=== PATIENT | male | born 1980 | race Two or more races ===

== ENCOUNTER 2022-02-28 23:08 | Emergency (ER) | payer OTHER ==
[~2022-02-28] VITALS: Ht 162.6 cm; Wt 68.0 kg
--- NOTE | 2022-02-28 23:15 | NUR ---
TO ER BED 11. [id number]. SEIZURE. WITNESSED BY FRIENDS. NO POSTICTAL STATE NOTED. PT IS ALERT AND ORIENTED. RR EVEN AND NON LABORED. SEIZURE PRECAUTIONS IN PLACE. CONNECTED TO MONITOR. VSS
--- NOTE | 2022-02-28 23:26 | NUR ---
BS 115; DR. BLOCK AWARE
--- NOTE | 2022-02-28 23:29 | NUR ---
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
[2022-02-28] MEDS ORDERED: IV NS 0.9% 1,000 ML BAG IV ONE (23:30)
--- NOTE | 2022-02-28 23:47 | NUR ---
PT TAKEN TO CT VIA REKHA
--- NOTE | 2022-02-28 23:49 | NUR ---
IV LINE ESTABLISHED, [id number]
[2022-02-28 23:57] LABS: BASOPHILS % (AUTO) 0.1 % (0.0-2.0); EOSINOPHILS % (AUTO) 0.3 % (0.0-6.0); HEMATOCRIT 48 % (39-51); HEMOGLOBIN 16.2 g/dL (13.5-17.5); LYMPHOCYTES # (AUTO) 1.1 K/uL (0.8-4.8); LYMPHOCYTES % (AUTO) 7.8 % (20.0-44.0); MEAN CORPUSCULAR HGB CONC 34 g/dl (31.0-36.0); MEAN CORPUSCULAR VOLUME 86 fL (80-96); MONOCYTES # (AUTO) 1.2 K/uL (0.1-1.30); MONOCYTES % (AUTO) 7.9 % (2.0-12.0); NEUTROPHILS # (AUTO) 12.3 K/uL (1.8-8.9); NEUTROPHILS % (AUTO) 83.9 % (43.0-81.0); PLATELET COUNT (AUTO) 323 K/uL (150-450); RED BLOOD CELL COUNT(AUTO) 5.63 MIL/uL (4.5-6.0); WHITE BLOOD COUNT (AUTO) 14.7 K/uL (4.3-11.0)
--- NOTE | 2022-02-28 23:57 | NUR ---
PT RETURNED TO ER BED [address]
[2022-03-01 00:06] LABS: CALCIUM, SERUM 8.9 mg/dL (8.5-10.1); CARBON DIOXIDE 32 mmol/L (21-32); CHLORIDE 98 mmol/L (98-107); GLUCOSE 101 mg/dL (74-106); POTASSIUM 3.6 mmol/L (3.5-5.1); SODIUM SERUM 134 mmol/L (136-145); UREA NITROGEN, BLOOD 11 mg/dL (7-18)
[2022-03-01 00:14] LABS: ALANINE AMINOTRANSFERASE 26 U/L (12-78); ALBUMIN 3.6 g/dL (3.4-5.0); ALCOHOL, BLOOD < 3 mg/dL (0-0); ALKALINE PHOSPHATASE 111 U/L (46-116); ASPARTATE AMINOTRANSFERASE 15 U/L (15-37); BILIRUBIN,DIRECT 0.1 mg/dL (0.0-0.2); BILIRUBIN,TOTAL 0.4 mg/dL (0.2-1.0); TOTAL PROTEIN, SERUM 8.6 g/dL (6.4-8.2)
--- NOTE | 2022-03-01 02:26 | NUR ---
FOLLOWED UP [facility] REGARDING CT RESULT, WILL CALL [facility] FOR FOLLOW UP
--- NOTE | 2022-03-01 03:08 | NUR ---
CALLED [facility] TO FOLLOW UP ON CT SCAN, APPROX TIME OF READING WILL BE 2 HOURS
--- NOTE | 2022-03-01 03:54 | NUR ---
IV removed. Catheter intact and site benign. Pressure and 4x4 applied to site. No bleeding noted.
--- NOTE | 2022-03-01 03:54 | NUR ---
Patient discharged to home in stable condition. Written and verbal after care instructions given. Patient verbalizes understanding of instruction.
[2022-03-01 03:57] VITALS: BP 126/71
== END 2022-03-01 03:58 | disposition home or self-care (01) ==
LOC: ER 23:12
DX: G40.909 Epilepsy, unspecified, not intractable, without status epilepticus (principal); F17.200 Nicotine dependence, unspecified, uncomplicated; Z60.2 Problems related to living alone
CPT/HCPCS: 99285; 96360; 93005; 71045; 70450; 85025; 80048; 80076; 36415; 84484; 82962; 80320; J7030; G0480